=== PATIENT | male | born 1990 | race Hispanic/Latino ===

== ENCOUNTER 2024-05-18 00:46 | Emergency (ER) | payer OTHER, SELFPAY ==
--- OUTSIDE RECORDS SUMMARY | 2024-05-18 00:50 | XMS REPORT | Continuity of Care Document ---
Author Name Unknown Address [address] [facility] [address] [place] [address] [facility] Address [address] [facility]. [address] [place] [address] Care Team Providers Care Hand Cultivator Name Role Phone Miguelito Gomez Attending Clinician Unavailable Julio C Thomason Attending Clinician Unavailable Kyrstin Engel Attending Clinician Unavail able Vignesh Baker Attending Clinician Unavailable Katherine Ambrosio APN Admitting Clinician Codey Wagner Admitting Clinician Unavailable KNOW, DOES_NOT Admitting Clinician Unavailable Physician, No Primary or Family Admitting Clinic geovani Unavailable Payers Payer Name Policy Type Policy Number Effective Date Expirati on Date Source Allergies, Adverse Reactions, Alerts Allergy Name Allergy Type Status Severity Reaction(s) Onset Date Inactive Date Treating Clinician Comments Source No Known Allergie s DA Active U 8-10 00:00: 00 [facility] No Known Allergie s DA Active U 8-20 00:00: 00 [facility] No Known Allergie s DA Active U 7-17 00:00: 00 [facility] Encounters Start Date/Time End Date/Time Encounter Type Admission Type Attending Clinicians Care Facility Care Department Encounter ID Source 2023-05-24 22:46:00 2023-05-24 23:47:00 Emergency EM Miguelito Gomez [facility] [id number] [facility] 2023-03-01 19:21:00 2023-03-01 22:20:00 Emergency EM Julio C Thomason [facility] [id number] [facility] 2023-03-01 19:21:00 2023-03-01 22:20:00 Emergency EM Julio C Thomason [facility] [id number] [facility] 2022-11-02 08:58:00 2022-11-02 09:54:00 Emergency EM Julio C Thomason [facility] [id number] [facility] 2022-03-11 21:13:00 2022-03-11 23:22:00 Emergency EM Krystin Engel [facility] [id number] [facility] 2022-02-05 10:00:00 2022-02-05 11:13:00 [facility] [id number] [facility] 2022-02-05 10:00:00 2022-02-05 11:13:00 Emergency EM [facility]ignesh [facility] [id number] [facility] Results Test Description Test Time Test Comments Results Result Co mments Source URINALYSIS W REFLEX [id number] 21:09:00* Test Item Value Reference Range Interpretation Comme nts UA COLOR (test code = COLU) YELLOW YELLOW UA APPEARANCE (test code = APPU) TURBID CLEAR UA GLUCOSE DIPSTICK (test co de = DGLUU) NORMAL mg/dl NORMAL UA BILIRUBIN DIPSTICK (test code = BILU) NEGATIVE mg/dl NEGATIVE UA KETONE DIPSTICK (test cod e = KETU) NEGATIVE mg/dl NEGATIVE UA SPECIFIC GRAVITY (test co de = SGU) 1.021 1.001-1.035 N UA BLOOD DIPSTICK (test code = ZACARIAS) NEGATIVE /UL NEGATIVE UA PH DIPSTICK (test code = GRETA) 6.5 4.6-8.0 UA PROTEIN DIPSTICK (test co de = PROU) 20 mg/dl NEGATIVE UA UROBILINIOGEN DIPSTICK (test code = URO) NORMAL mg/dl NORMAL UA NITRITE DIPSTICK (test co de = ROSALVA) NEGATIVE NEGATIVE UA LEUKOCYTE ESTERASE DIPSTI CK (test code = LEUU) NEGATIVE /UL NEGATIVE UA COMMENT (test code = COMU) CLN CATCH UA WBC (test code = WBCU) 0-2 #/hpf 0-5 UA EPITHELIAL CELLS (test co de = EPIU) FEW /hpf NEG,FEW UA BACTERIA (test code = BACU) FEW /hpf NEGATIVE A UA MUCUS (test code = MUCU) 2+ /hpf NEG,FEW A UA AMORPHOUS SEDIMENT (test code = AMORU) 2+ /hpf NEG,FEW A - CT HEAD/BRAIN W/O [id number] 21:02:00 [facility] 1990 Sex: M Name: AYANNA NATH [facility] : 1990 Age/S: 32 / M [address] Unit#: [id number] [place]: [place] [address] Phys: Julio C Thomason MD Acct: [id number] Dis Date: Status: REG ER PHONE #: [phone] Exam Date: 03/01/20232058 FAX #: [phone] Reason: seizure EXAMS: CPT CODE: [id number] CT HEAD/BRAIN W/O CONT [id number] EXAM: CT head without contrast. LOCATION: H 12 HISTORY: seizure TECHNIQUE: Unenhanced spiral slices were taken from the base of the skull, through the vertex. One or more of the following dose reduction techniques were used: Automated exposure control, adjustment of the mA and/or kV according to patient size, and/or utilization of iterative recons truction technique. FINDINGS: No acute intracranial abnormality is identified. The brain parenchyma and the CSF spaces are unremarkable. No mass, midline shift, hemorrhage, edema or hydrocephalus isseen. The visualized paranasal sinuses are clear. The mastoid air cells are well pneumatized. The bony calvarium is intact. IMPRESSION: 1. No acute intracranial abnormality. 2. Unremarkable exam. at 2101 Reported and signed by: JOHN REY M.D. CC: Julio C Thomason MD Technologist:Sanchez Moreno, RT (R) CT (R) CTDI: 43.97 DLP: 838.7 [facility] Date/Time: 03/01/2023 (2101) t.[email or web address].[email or web address] Orig Print D/T: S: 03/01/2023 (2104) PAGE 1 Signed Report- CT HEAD/BRAIN W/O [id number] 21:02:00 [facility] : 1990 [facility] 1990 Age/S: 32 / M [address] Unit #: [id number] [facility] [place] [address] Phys: Julio C Thomason MD Acct: [id number] Dis Date: Status: [facility] PHONE #: [phone] Exam Date: 03/01/20232058 FAX #: [phone] Reason: seizure EXA MS: CPT CODE: [id number] CT HEAD/BRAIN W/O CONT 51455 EXAM: CT head without contrast. LOCATION: H 12 HISTORY: seizure TECHNIQUE: Unenhanced spiral slices were taken from the base of the skull, through the vertex. One or more of the following dose reduction techniques were used: Automated exposure control, adjustment of the mA and/or kV according to patient size, and/or utilization of iterative reconstruction technique. FINDINGS: No acute intracranial abnormality is identified. The brain parenchyma and the CSF spaces are unremarkable. No mass, midline shift, hemorrhage, edema or hydrocephalus is seen. The visualized paranasal sinuses are clear. The mastoid air cells are well pneumatized. Thebony calvarium is intact. IMPRESSION: 1. No acute intracranial abnormality. 2. Unremarkable exam. at 2101 Reported and signed by: JOHN REY M.D. CC: Julio C Thomason MD Technologist:Sanchez Moreno, RT (R) CT (R) CTDI: 43.97 DLP: 838.7 [facility] Date/Time: 03/01/2023 (2101) ZacFC Orig Print D/T: S: 03/01/2023 (2104)PAGE 1 Signed ReportCOMPREHENSIVE METABOLIC [id number] 19:59:00* Test Item Value Reference Range Interpretation Comme nts SODIUM (test code = NA) 141 mmol/L 136-145 N POTASSIUM (test code = K) 3.3 mmol/L 3.5-5.1 L CHLORIDE (test code = CL) 104 mmol/L 98-107 N CARBON DIOXIDE (test code = CO2) 24 mmol/L 21-32 N GLUCOSE (test code = GLU) 125 mg/dL 70-100 H BLOOD UREA NITROGEN (test code = BUN) 12 mg/dL 7-18 N GLOMERULAR FILTRATION RATE (test code = GFR) > 60.00 See_Comment The Glomerular Filtration Rate is a calculated parameterbased on serum Creatinine, patient age and sex. GFR valuesless than 60 mL/min/1.73 square meters are indicative ofChronic Kidney Disease. Values less than 15 mL/min/1.73square meters indicate Kidney failure. The calculation forGFR is based on the CKD-EPI (2020) calculation. This formulais race indifferent and is the recommended formula for GFRby the National Kidney Foundation for Adults.The GFR will not calculate if the sex is unknown or if thepatient's age is <18 years. [Automated message] The system which generated this result transmitted reference range: >=60. The reference range was not used to interpret this result as normal/abnormal. CREATININE (test code = CREAT) 1.28 mg/dL 0.67-1.17 H TOTAL PROTEIN (test code = PROT) 7.4 g/dl 6.4-8.2 N ALBUMIN (test code = ALB) 4.0 g/dl 3.4-5.0 N CALCIUM (test code = CA) 9.6 mg/dL 8.5-10.1 N BILIRUBIN TOTAL (test code = BILT) 0.3 mg/dl 0.2-1.0 N SGOT/AST (test code = AST) 80 U/L 15-37 H SGPT/ALT (test code = ALT) 119 U/L 12-78 H ALKALINE PHOSPHATASE TOTAL (test code = ALKP) 58 U/L 50-136 N CREATINE KINASE (CK)2023-03-01 19:59:00* Test Item Value Reference Range Interpretation Comme nts CREATINE KINASE (CK) (test code = CK) 47 U/L 35-232 N [id number] 19:59:00* Test Item Value Reference Range Interpretation Comme nts MAGNESIUM (test code = MAG) 2.1 mg/dL 1.8-2.4 N [id number] 19:59:00* Test Item Value Reference Range Interpretation Comme nts ALCOHOL (test code = ALC) <3 mg/dL 0-3 N Results are for Medical purposes only, and not for Legal orEmployment evaluation purposes. CBC W/AUTO [id number] 19:41:00* Test Item Value Reference Range Interpretation Comme nts WHITE BLOOD CELL (test code = WBC) 8.6 X10(3) 4.5-11.0 N RED BLOOD CELL (test code = RBC) 4.67 X10(6) 4.3-5.9 N HEMOGLOBIN (test code = HGB) 15.3 g/dL 13.5-18.0 N HEMATOCRIT (test code = HCT) 44.8 % 42.0-52.0 N MEAN CELL VOLUME (test code = MCV) 95.9 fl 78-100 N MEAN CELL HGB (test code = MCH) 32.8 pg 26.0-34.0 N MEAN CELL HGB CONCETRATION (test code = MCHC) 34.2 g/dl 30.0-37.0 N RED CELL DISTRIBUTION WIDTH (test code = RDW) 12.7 % 11.5-14.5 N PLATELET COUNT (test code = PLT) 238 X10(3) 150-400 N MEAN PLATELET VOLUME (test c ode = MPV) 8.6 fl 8.7-11.4 L NEUTROPHIL % (test code = NT%) 47.8 % 36.0-66.0 N IMMATURE GRANULOCYTE % (test code = IG%) 0.1 % 0.0-2.0 N LYMPHOCYTE % (test code = LY%) 33.7 % 16.0-50.0 N MONOCYTE % (test code = MO%) 15.8 % 0.0-13.0 H EOSINOPHIL % (test code = EO%) 2.1 % 0.0-4.5 N BASOPHIL % (test code = BA%) 0.5 % 0.0-1.5 N NUCLEATED RBC % (test code = NRBC%) 0.0 % 0-0.2 N NEUTROPHIL # (test code = NT#) 4.09 X10(3) 1.70-7.70 N IMMATURE GRANULOCYTE # (test code = IG#) 0.01 X10(3)uL 0.00-0.03 N LYMPHOCYTE # (test code = LY#) 2.88 X10(3) 0.70-4.00 N MONOCYTE # (test code = MO#) 1.35 X10(3) 0.00-0.89 H EOSINOPHIL # (test code = EO#) 0.18 X10(3) 0.00-0.60 N BASOPHIL # (test code = BA#) 0.04 X10(3) 0.00-0.20 N NUCLEATED RBC # (test code = NRBC#) 0.00 K/mm3 0.0-0.1 N - XR L-SPINE 2/3 [id number] 09:43:00 [facility] 1990 Sex: M [facility] Name: AYANNA NATH [address] Phys: Julio C Thomason MD [place], [place] [address] : 1990 Age: 32 Sex: M Acct: [id number] Loc: [facility] PHONE #: [phone] ExamDate: 11/02/2022 Status: REG ER FAX #: [phone] Radiology No: Unit No: [id number] Reason: upperlumbar pain EXAMS: CPT CODE: [id number] XR L-SPINE 2/3 VIEWS 93266 Fluoro Time: DAP (Gy m2): Air Kerma (mGy): Dictation location B2 Thoracic spine 3 views Lumbar spine 2 views HISTORY:upper lumbar pain, fall COMMENT: There is a normal thoracic kyphosis with preservation of normal vertebral body alignment, vertebral body height and intervertebral disc space distance. No evidence of fracture is identified. The paravertebral stripe appears normal with no widening. There is normal lumbar lordosis with preservation of normal vertebral body alignment, vertebral body height, and intervertebral disc space distance. No spondylolysis, or spondylolisthesis is visualized. There is no evidence of fracture or dislocation. IMPRESSION: 1. Normal thoracic spine. 2. Normal lumbar spine. at 0943 Reported and signed by: TERRA VELAZQUEZ M.D. CC: Lenny Thomason MD Technologist: Gigi Alex RT (R) CT Transcribed Date/Time: 11/02/2022 (0943) t.SDR.PXC Orig Print D/T: S: 11/02/2022 (0946) PAGE 1 Signed Report- XR T-SPINE 2 [id number] 09:43:00 [facility] : 1990 Sex: M [facility] Name: AYANNA NATH [address] [place] [place] [address] Phys: Julio C Thomason MD [place], [place] [address] : 1990 Age: 32 Sex: M Acct: [id number] Loc: [facility] PHONE #: [phone] ExamDate: 11/02/2022 Status: REG ER FAX #: [phone] Radiology No: Unit No: [id number] Reason: upper lumbar pain, fall EXAMS: CPT CODE: [id number] XR T-SPINE 2 VIEWS 93043 Fluoro Time: DAP (Gy m2): Air Kerma (mGy): Dictation location B2 Thoracic spine 3 views Lumbar spine 2 views HISTORY:upper lumbar pain, fall COMMENT: There is a normal thoracic kyphosis with preservation of normal vertebral body alignment, vertebral body height and intervertebral disc space distance. No evidence of fracture is identified. The paravertebral stripe appears normal with no widening. There is normal lumbar lordosis with preservation of normal vertebral body alignment, vertebral body height, and intervertebraldisc space distance. No spondylolysis, or spondylolisthesis is visualized. There is no evidence of fracture or dislocation. IMPRESSION: 1. Normal thoracic spine. 2. Normal lumbar spine. at 0943 Reported and signed by: TERRA VELAZQUEZ M.D. CC:Julio C Thomason MD Technologist: Gigi Alex RT (R) CT Transcribed Date/Time: 11/02/2022 (0943) ZacPXC Orig Print D/T: S: 11/02/2022 (8840) PAGE 1 Signed ReportCOMPREHENSIVE METABOLIC [id number] 22:29:00* Test Item Value Reference Range Interpretation Comme nts SODIUM (test code = NA) 134 mmol/L 136-145 L POTASSIUM (test code = K) 3.7 mmol/L 3.5-5.1 N CHLORIDE (test code = CL) 103 mmol/L 98-107 N CARBON DIOXIDE (test code = CO2) 25 mmol/L 21-32 N GLUCOSE (test code = GLU) 99 mg/dL 70-100 N BLOOD UREA NITROGEN (test code = BUN) 13 mg/dL 7-18 N GLOMERULAR FILTRATION RATE (test code = GFR) > 60.00 See_Comment Reporting units: mL/min/1.73m\S\2 (Modified MDRD formula)REFERENCE RANGE: > or = 60 ml/min/1.73M2IF PATIENT IS -WALLISIAN, MULTIPLY REPORTED RESULT BY1.21. [Automated message] The system which generated this result transmitted reference range: >=60. The reference range was not used to interpret this result as normal/abnormal. CREATININE (test code = CREAT) 1.00 mg/dL 0.67-1.17 N TOTAL PROTEIN (test code = PROT) 8.3 g/dl 6.4-8.2 H ALBUMIN (test code = ALB) 4.0 g/dl 3.4-5.0 N CALCIUM (test code = CA) 9.2 mg/dL 8.5-10.1 N BILIRUBIN TOTAL (test code = BILT) 1.1 mg/dl 0.2-1.0 H SGOT/AST (test code = AST) 42 U/L 15-37 H SGPT/ALT (test code = ALT) 54 U/L 12-78 N ALKALINE PHOSPHATASE TOTAL (test code = ALKP) 59 U/L 50-136 N TROPI (HIGH SENSITIVITY)2022-03-11 22:29:00* Test Item Value Reference Range Interpretation Comme nts TROPI (HIGH SENSITIVITY) (test code = TROPI) <4 pg/ml 0-78 N HIGH SENSITIVITY TROPONIN MEASUREMENT/RANGES--------- Ass ay : Units : Normal : Risk Stratification : High : : (Detectable : Limit(Suggestive of : AboveTNIH : : Limit) : sequential testing) : 99th : : : : % ile --------FEMALES: pg/ml : <= 3.0 : 3.1 - 54 : >54 --------MALES : pg/ml : <= 3.0 : 3.1 - 78 : >78 --------- UA RFLX MICROSCOPIC [id number] 22:12:00* Test Item Value Reference Range Interpretation Comme nts UA COLOR (test code = COLU) YELLOW YELLOW UA APPEARANCE (test code = APPU) CLEAR CLEAR UA GLUCOSE DIPSTICK (test co de = DGLUU) NORMAL mg/dl NORMAL UA BILIRUBIN DIPSTICK (test code = BILU) NEGATIVE mg/dl NEGATIVE UA KETONE DIPSTICK (test cod e = KETU) 20 mg/dl NEGATIVE A UA SPECIFIC GRAVITY (test co de = SGU) 1.021 1.001-1.035 N UA BLOOD DIPSTICK (test code = ZACARIAS) NEGATIVE /UL NEGATIVE UA PH DIPSTICK (test code = GRETA) 7.5 4.6-8.0 UA PROTEIN DIPSTICK (test co de = PROU) NEGATIVE mg/dl NEGATIVE UA UROBILINIOGEN DIPSTICK (test code = URO) 12 mg/dl NORMAL A UA NITRITE DIPSTICK (test co de = ROSALVA) NEGATIVE NEGATIVE UA LEUKOCYTE ESTERASE DIPSTI CK (test code = LEUU) NEGATIVE /UL NEGATIVE UA COMMENT (test code = COMU) CLN CATCH UA WBC (test code = WBCUR) 0-2 #/hpf 0-5 UA RBC (test code = RBCU) 3-5 #/hpf 0-5 UA BACTERIA (test code = BACU) FEW /hpf NEGATIVE A UA MUCUS (test code = MUCU) FEW /hpf NEG,FEW UA AMORPHOUS SEDIMENT (test code = AMORU) FEW /hpf NEG,FEW Indication for culture: Temperature > 100.4 FURINE SOURCE: CLEAN CATCH URINE COVID 19 INHOUSE [id number] 22:10:00* Test Item Value Reference Range Interpretation Comme nts COVID 19 INHOUSE AG (test code = [id number]) Presumed Negative NEGATIVE SHAILA COVID-19 Results are for the identification of EYBU-JxO-7vcsvuxpnidxt protein antigen. Antigen is generallydetectable in upper respiratory specimens during the acutephase of infection. Positive results indicate the presenceof viral antigens, but clinical correlation with patienthistory and other diagnostic information is necessary todetermine infection status. Negative results should be treated as presumptive andconfirmed with a molecular assay, if necessary for patientmanagement. Negative results do not rule out COVID-19 andshould not be used as the sole basis for treatment orpatient management decisions, including infection controldecisions. Negative results should be considered in thecontext of a patient's recent exposures, history and thepresence of clinical signs and symptoms consistent withCOVID-19. The Shaila SARS Antigen DEJA is only for use under the Foodand Drug Administration's Emergency Use Authorization. CBC W/AUTO [id number] 22:08:00* Test Item Value Reference Range Interpretation Comme nts WHITE BLOOD CELL (test code = WBC) 14.7 X10(3) 4.5-11.0 H RED BLOOD CELL (test code = RBC) 4.96 X10(6) 4.3-5.9 N HEMOGLOBIN (test code = HGB) 15.5 g/dL 13.5-18.0 N HEMATOCRIT (test code = HCT) 45.0 % 42.0-52.0 N MEAN CELL VOLUME (test code = MCV) 90.7 fl 78-100 N MEAN CELL HGB (test code = MCH) 31.3 pg 26.0-34.0 N MEAN CELL HGB CONCETRATION (test code = MCHC) 34.4 g/dl 30.0-37.0 N RED CELL DISTRIBUTION WIDTH (test code = RDW) 13.2 % 11.5-14.5 N PLATELET COUNT (test code = PLT) 246 X10(3) 150-350 N MEAN PLATELET VOLUME (test c ode = MPV) 9.0 fl 8.7-11.4 N NEUTROPHIL % (test code = NT%) 75.7 % 36.0-66.0 H IMMATURE GRANULOCYTE % (test code = IG%) 0.4 % 0.0-2.0 N LYMPHOCYTE % (test code = LY%) 7.7 % 16.0-50.0 L MONOCYTE % (test code = MO%) 14.9 % 0.0-13.0 H EOSINOPHIL % (test code = EO%) 1.0 % 0.0-4.5 N BASOPHIL % (test code = BA%) 0.3 % 0.0-1.5 N NUCLEATED RBC % (test code = NRBC%) 0.0 % 0-0.2 N NEUTROPHIL # (test code = NT#) 11.12 X10(3) 1.70-7.70 H IMMATURE GRANULOCYTE # (test code = IG#) 0.06 X10(3)uL 0.00-0.03 H LYMPHOCYTE # (test code = LY#) 1.13 X10(3) 0.70-4.00 N MONOCYTE # (test code = MO#) 2.19 X10(3) 0.00-0.89 H EOSINOPHIL # (test code = EO#) 0.15 X10(3) 0.00-0.60 N BASOPHIL # (test code = BA#) 0.04 X10(3) 0.00-0.20 N NUCLEATED RBC # (test code = NRBC#) 0.00 K/mm3 0.0-0.1 N LACTIC [id number] 22:07:00* Test Item Value Reference Range Interpretation Comme nts LACTIC ACID (test code = LACT) 1.1 mmol/l 0.4-2.0 N - XR CHEST 1 [id number] 22:04:00 [facility] : 1990 Sex: M [facility] Name: AYANNA NATH [address] [place] [place] [address] Phys: Krystin Engel DO [place], [place] [address] : 1990 Age: 31 Sex: M Acct: [id number] Loc: [facility] PHONE #: [phone] Date: 03/11/2022 Status: REG ER FAX #: [phone] Radiology No: Unit No: [id number] Reason: chest pain EXAMS: CPT CODE: [id number] XR CHEST 1 V 43761 Fluoro Time: DAP (Gy m2): Air Kerma (mGy): L OCATION: Q15 HISTORY: 31-year-old male presents with chest pain and dyspnea. COMMENT: A frontal chest radiograph was obtained at 9:53 p.m. The lungs are clear and well-aerated. The cardiac silhouette, austin, and mediastinum are within normal limits. The skeleton and soft tissues are unremarkable. IMPRESSION: Unremarkable frontal chest examination. at 2204 Reported and signed by: AISSATOU MEZA M.D. CC: Krystin Engel DO Technologist: Shikha Anguiano RT (R) ; ... Transcribed Date/Time: 03/11/2022 (2203) tMARY [id number] Orig Print D/T: S: 03/11/2022 (2206) PAGE 1 Signed ReportCOMPREHENSIVE METABOLIC [id number] 10:54:00* Test Item Value Reference Range Interpretation Comme nts SODIUM (test code = NA) 138 mmol/L 136-145 N POTASSIUM (test code = K) 3.6 mmol/L 3.5-5.1 N CHLORIDE (test code = CL) 109 mmol/L 98-107 H CARBON DIOXIDE (test code = CO2) 25 mmol/L 21-32 N GLUCOSE (test code = GLU) 79 mg/dL 70-100 N BLOOD UREA NITROGEN (test code = BUN) 20 mg/dL 7-18 H GLOMERULAR FILTRATION RATE (test code = GFR) > 60.00 See_Comment Reporting units: mL/min/1.73m\S\2 (Modified MDRD formula)REFERENCE RANGE: > or = 60 ml/min/1.73M2IF PATIENT IS -WALLISIAN, MULTIPLY REPORTED RESULT BY1.21. [Automated message] The system which generated this result transmitted reference range: >=60. The reference range was not used to interpret this result as normal/abnormal. CREATININE (test code = CREAT) 1.06 mg/dL 0.67-1.17 N TOTAL PROTEIN (test code = PROT) 7.5 g/dl 6.4-8.2 N ALBUMIN (test code = ALB) 4.1 g/dl 3.4-5.0 N CALCIUM (test code = CA) 7.8 mg/dL 8.5-10.1 L BILIRUBIN TOTAL (test code = BILT) 0.5 mg/dl 0.2-1.0 N SGOT/AST (test code = AST) 150 U/L 15-37 H SGPT/ALT (test code = ALT) 145 U/L 12-78 H ALKALINE PHOSPHATASE TOTAL (test code = ALKP) 62 U/L 50-136 N [id number] 10:54:00* Test Item Value Reference Range Interpretation Comme nts LIPASE (test code = LIP) 72 U/L 73-393 L - XR ABD COMP W DEC/ERE [id number] 10:53:00 [facility] : 1990 Sex: M [facility] Name: AYANNA NATH [address] Phys: Vignesh Baker Jr, [place] [address] : 1990 Age: 31 Sex: M Acct: [id number] Loc: [facility] PHONE #: [phone] Exam Date: 02/05/2022 Status: PRE ER FAX #: [phone] Radiology No: Unit No: [id number] Reason: ABD PAIN EXAMS: CPT CODE: [id number] XR ABD COMP W DEC/ERE 3+V 86349 Fluoro Time: DAP (Gy m2): Air Kerma (mGy): - XR ABD COMP W DEC/ERE 3+V REASON FOR EXAM: ABD PAIN COMPARISON: No prior comparison studies. FINDINGS: 2 frontal images of the abdomen. Bowel gas pattern is nonobstructive. Moderate stool burden. No obvious free air. Visualized lung bases are unremarkable. No acute osseous abnormality. IM PRESSION: No acute radiographic findings of the abdomen. Location: H71 at 1053 Reported and signed by: MISHEL PINEDA M.D. CC: Technologist: Cali Basilio,HARLEYT,BUSINESS OFFICE COORDINATOR,RTR Transcribed Date/Time: 02/05/2022 (1682) ZacVM14 OrigPrint D/T: S: 02/05/2022 (9717) PAGE 1 Signed ReportCBC W/AUTO DIFF 2022-02-05 10:28:00* Test Item Value Reference Range Interpretation Comme nts WHITE BLOOD CELL (test code = WBC) 8.3 X10(3) 4.5-11.0 N RED BLOOD CELL (test code = RBC) 4.60 X10(6) 4.3-5.9 N HEMOGLOBIN (test code = HGB) 14.3 g/dL 13.5-18.0 N HEMATOCRIT (test code = HCT) 42.1 % 42.0-52.0 N MEAN CELL VOLUME (test code = MCV) 91.5 fl 78-100 N MEAN CELL HGB (test code = MCH) 31.1 pg 26.0-34.0 N MEAN CELL HGB CONCETRATION (test code = MCHC) 34.0 g/dl 30.0-37.0 N RED CELL DISTRIBUTION WIDTH (test code = RDW) 13.0 % 11.5-14.5 N PLATELET COUNT (test code = PLT) 206 X10(3) 150-350 N MEAN PLATELET VOLUME (test c ode = MPV) 8.9 fl 8.7-11.4 N NEUTROPHIL % (test code = NT%) 64.8 % 36.0-66.0 N IMMATURE GRANULOCYTE % (test code = IG%) 0.1 % 0.0-2.0 N LYMPHOCYTE % (test code = LY%) 22.8 % 16.0-50.0 N MONOCYTE % (test code = MO%) 8.4 % 0.0-13.0 N EOSINOPHIL % (test code = EO%) 3.5 % 0.0-4.5 N BASOPHIL % (test code = BA%) 0.4 % 0.0-1.5 N NUCLEATED RBC % (test code = NRBC%) 0.0 % 0-0.2 N NEUTROPHIL # (test code = NT#) 5.39 X10(3) 1.70-7.70 N IMMATURE GRANULOCYTE # (test code = IG#) 0.01 X10(3)uL 0.00-0.03 N LYMPHOCYTE # (test code = LY#) 1.90 X10(3) 0.70-4.00 N MONOCYTE # (test code = MO#) 0.70 X10(3) 0.00-0.89 N EOSINOPHIL # (test code = EO#) 0.29 X10(3) 0.00-0.60 N BASOPHIL # (test code = BA#) 0.03 X10(3) 0.00-0.20 N NUCLEATED RBC # (test code = NRBC#) 0.00 K/mm3 0.0-0.1 N Notes Date/Time Note Provider Source 2023-05-24 23:06:00 [facility] EMERGENCY PROVIDER REPORT REPORT#:[id number] REPORT STATUS: Signed DATE:05/24/23 TIME: 2305 PATIENT: AYANNA NATH UNIT #: [id number] ROOM/BED: AGE: 33 SEX: M PCP PHYS: Katherine Ambrosio [employer] AUTHOR: Miguelito Gomez Jr, MD * ALL edits or amendments must be made on the electronic/computer document * HPI-Abd Pain M Under 40 Free Text HPI Notes Free Text HPI Notes Patient presents with concerns for constipation. Patient is with been about 4 days since his last bowel movement. He states usually goes daily. He states he is passing gas regularly. He denies any vomiting. Denies any abdominal pain. He states he thought he had some black stool the last time he had a bowel movement. No hematochezia no hematemesis no history of GI bleeding. Reports a possible history of cirrhosis. Denies fevers chills cough congestion nausea vomiting diarrhea. He came because he has the constipation but he has not tried any stool softeners or enemas or suppositories. Review of Systems Constitutional Denies: Chills, Fatigue, Fever. Ears/Nose/Throat Denies: Nasal congestion, Sore throat, Throat pain. Respiratory Denies: Cough, non-productive, Cough, productive, Shortness of breath. Cardiovascular Denies: Chest pain, Dyspnea on exertion, Edema, Palpitations. GI Reports:CONSTIPATION Denies: Abdominal pain, Diarrhea, Nausea, Vomiting. Male Denies: Dysuria, Flank pain, Hematuria. Musculoskeletal Denies: Back pain, Extremity pain, Joint pain, Myalgia. Hematologic Denies: Bleeding, Bruising, Petechiae. Skin Denies: Abrasion, Diaphoresis, Itching, Jaundice, Rash. Neurologic Denies: Change LOC, Confusion, Dizziness, Focal weakness, Generalized weakness. Physical Exam General/Const General/Const Awake, Alert, No acute distress, Well appearing, Well developed , Cooperative, Not toxic appearing MS Head Head Atraumatic, Normocephalic Eyes Eyes Atraumatic, PERRL, EOMI Ears/Nose/Throat Ears/Nose/Throat Atraumatic, Airway patent, Mucous membranes moist MS Neck Neck Atraumatic, Supple, No meningismus Resp/Chest Respiratory/Chest Atraumatic, No respiratory distress, No retractions Cardiovascular Cardiovascular Heart rate NL, Cap refill not delayed, Peripheral circulation NL Abdomen/GI Abdomen/GI Atraumatic, Soft, Non-tender MS Back Back Atraumatic, Inspection NL, Full range of motion Skin Skin Atraumatic, Color NL, No rash Neurologic Neurologic Oriented X3, Speech NL, No motor deficits General Initial Greet Date/Time 05/24/232246 Presentation Chief Complaint Constipation Risk-Abd Pain M Under 40 )( Torsion Risk factors reviewed, No risk factors Past Medical History - Adult Stated Complaint CONSTIPATION, LAST BM 4 DAYS AGO Allergies Coded Allergies: No Known Allergies (03/11/22) Home Medications Active Scripts AZITHROMYCIN (Z-KVNG) 250 MG PO ASDIR AZITHROMYCIN (Z-KVNG) 250 MG PO ASDIR #6 TABS Prov: 03/11/22 predniSONE 40 MG PO DAILY predniSONE 40 MG PO DAILY #8 TABS Prov: 03/11/22 ALBUTEROL (VENTOLIN HFA 90 MCG/ACT 18 GM) 2 PUFF INH RTQ4H PRN PRN cough ALBUTEROL (VENTOLIN HFA 90 MCG/ACT 18 GM) 2 PUFF INH RTQ4H PRN PRN cough # 18 GM Prov: 03/11/22 ACETAMINOPHEN (TYLENOL) 500 MG PO ASDIR ACETAMINOPHEN (TYLENOL) 500 MG PO ASDIR #24 TABS Prov: 02/05/22 ONDANSETRON ODT (ZOFRAN ODT) 4 MG PO Q6H PRN PRN NAUSEA/VOMITING ONDANSETRON ODT (ZOFRAN ODT) 4 MG PO Q6H PRN PRN NAUSEA/VOMITING #15 TABS Prov: 02/05/22 Calculated Suicide Risk (nurs) No risk Past Medical History: Reports: Alcoholism/subst abuse, Depression/mood disorder. Additional Medical History transaminitis Additional Surgical History Knee arthroscopic surgery Alcohol Use In recovery Drug Use Denies recreational drugs (everything), in past Smoking status for patients 13 years old or older: Unknown,if ever smoked Physical Exam Vital Signs Vital Signs First Documented: Result Date Time Pulse Ox 96 05/24 2247 B/P 111/72 05/247 B/P Mean 85 05/24 2247 Temp 37.4 05/24 2247 Pulse 96 05/24 2247 Resp 18 05/24 2247 O2 Delivery Room air 05/24 2347 Last Documented: Result Date Time Pulse Ox 98 05/24 2347 B/P 112/68 05/24 2347 B/P Mean 82 05/24 2347 O2 Delivery Room air 05/24 2347 Temp 37.2 05/24 2347 Pulse 87 05/24 2347 Resp 16 05/24 2347 Review of Vital Signs Reviewed, Vital signs normal Focused PE Rectum Rectal for Blood Negative: Blood, grossly present, Blood streaked stool, Currant jelly stool, Maroon stool, Melena present. Re-Evaluation MDM Free Text MDM Notes Free Text MDM Notes Considered small bowel stricture versus constipation versus upper GI bleed. On arrival patient nontoxic-appearing but on exam patient is soft nontender nondistended abdomen. Rectal exam without any melena or hematochezia. Patient still passing gas. Patient is tolerating p.o. Patient without any emesis. Patient without any surgical history, unlikely to have small bowel obstruction. Patient likely just constipation. Provided him with lactulose as he has not tried anything at home. Understands return precautions. )( Re-Evaluation/Progress #1 )( Re-Eval Status Improved Differential Diagnosis )( Differential Diagnosis Acute abdominal pain, Appendicitis, Bowel obstruction, Constipation Patient Discharge Departure Vital Signs/Condition Vital Signs First Documented: Result Date Time Pulse Ox 96 05/24 2247 B/P 111/72 05/24 2247 B/P Mean 85 05/24 2247 Temp 37.4 05/24 2247 Pulse 96 05/24 2247 Resp 18 05/24 2247 O2 Delivery Room air 05/24 2347 Last Documented: Result Date Time Pulse Ox 98 05/24 2347 B/P 112/68 05/247 B/P Mean 82 05/24 2347 O2 Delivery Room air 05/24 2347 Temp 37.2 05/24 2347 Pulse 87 05/24 2347 Resp 16 05/24 2347 All vital signs available at the time of this entry have been reviewed. Clinical Impression Clinical Impression Primary Impression: Constipation Disposition Decision Discharge )( Discharged to Home Yes )( Time 2307 )( Date 05/24/23 Discharge/Care Plan (Auto) Prescriptions Current Visit Scripts LACTULOSE (KRISTALOSE) 20 GM PO DAILY LACTULOSE (KRISTALOSE) 20 GM PO DAILY #10 PACKET at 0040 RPT #:[id number] END OF REPORT [facility] 19:29:00 [facility] ([facility]) EMERGENCY PROVIDER REPORT REPORT#:[id number] REPORT STATUS: Signed DATE:03/01/23 TIME: 1928 PATIENT: AYANNA NATH UNIT #: [id number] ROOM/BED: AGE: 32 SEX: M PCP PHYS: Codey Taylor Jr, MD SERVICE AUTHOR: Julio C Thomason MD * ALL edits or amendments must be made on the electronic/computer document * HPI-Seizure Free Text HPI Notes Free Text HPI Notes EMS states that it appears that patient has had 2 [id number] seizures. Family denies any medical problems and does state that patient has used recreational drugs previously and not sure if the seizure is related to any new drug use. Family denies any fevers or trauma. General Initial Greet Date/Time 03/01/231928 Presentation Chief Complaint Abnormal movements, Shaking Hx Obtained From EMS Review of Systems Focused Review of Systems Neurologic Reports: Seizure. Past Medical History - Adult Stated Complaint SEIZURE Allergies Coded Allergies: No Known Allergies (03/01/23) Pt reports no significant: Past surgical history, Family history Past Medical History: Reports: Alcoholism/subst abuse, Depression/mood disorder. Additional Medical History transaminitis Alcohol Use In recovery Drug Use Denies recreational drugs (everything), in past Physical Exam Vital Signs Vital Signs First Documented: Result Date Time Pulse Ox 96 03/01 1926 B/P 110/75 03/01 1926 B/P Mean 86 03/01 1926 O2 Delivery Room air 03/01 1926 Temp 36.8 03/01 1926 Pulse 110 03/01 1926 Resp 20 03/01 1926 Last Documented: Result Date Time Pulse Ox 96 03/01 2030 B/P 108/55 03/01 2030 B/P Mean 72 03/01 2030 O2 Delivery Room air 03/01 2030 Temp 37.5 03/01 2030 Pulse 89 03/01 2030 Resp 18 03/01 2030 Review of Vital Signs Reviewed, Vital signs abnormal Focused PE General/Const Text/Dict Notes Very rigid with extremities all extended. Does not appear to be tonic or clonic seizure-like activity Distress/Hydration Distress mild. MS Head Head Atraumatic, Normocephalic Eyes Eyes Atraumatic, PERRL, EOMI, No nystagmus Ears/Nose/Throat Ears/Nose/Throat Atraumatic, Airway patent, Mucous membranes moist, Pharynx NL, No peritonsillar abscess, No pooling of secretions, No trismus, Tympanic membs NL, Ext aud canal NL, Mastoid area NL, Nose exam NL, No sinus tenderness, No facial swelling, Gums/dentition NL MS Neck Neck Atraumatic, Supple, No meningismus, Full range of motion, No adenopathy, No swelling, Non-tender, No midline vertebral tend, No masses, No crepitus, No JVD, No carotid bruit, Thyroid NL, No tracheal deviation Resp/Chest Respiratory/Chest Atraumatic, Breath sounds NL, Breath sounds = bilat, No respiratory distress, No rales, No rhonchi, No wheezing, No retractions, No stridor, No chest tenderness, No chest wall deformity, No crepitus Cardiovascular Cardiovascular Regular rhythm, Heart sounds NL, No gallop, No murmurs, No rubs, Cap refill not delayed, Peripheral circulation NL, Pulses = bilaterally, No gross BP differential Heart Rate/Rhythm Tachycardia. MS Upper Extrem Upper Extremity/MS Atraumatic, Inspection NL, Full range of motion, No swelling, Non-tender, No snuffbox tenderness, No erythema, No deformity, Neurologic intact, Vascular intact, No ligamentous injury, Tendon function NL, No compartment syndrome, No circumferential injury, No clubbing/cyanosis, No edema MS Lower Extrem Lower Ext/Pelvis/MS Atraumatic, Inspection NL, Full range of motion, No swelling, Non-tender, No erythema, No deformity, Neurologic intact, Vascular intact, No ligamentous injury, Tendon function NL, No compartment syndrome, No circumferential injury, No edema, Gait NL, Pelvis stable, Pelvis non-tender Neurologic Text/Dict Notes seizing Interpretation Diagnostics Lab Results Interpretation Results Laboratory Tests 03/01/231935: [Embedded Image Not Available] Laboratory Tests: 03/01 Chemistry Sodium (136 - 145 mmol/L) 141 Potassium (3.5 - 5.1 mmol/L) 3.3 L Chloride (98 - 107 mmol/L) 104 Carbon Dioxide (21 - 32 mmol/L) 24 BUN (7 - 18 mg/dL) 12 Creatinine (0.67 - 1.17 mg/dL) 1.28 H Estimated GFR (MDRD) (>=60) > 60.00 Glucose (70 - 100 mg/dL) 125 H Calcium (8.5 - 10.1 mg/dL) 9.6 Magnesium (1.8 - 2.4 mg/dL) 2.1 Total Bilirubin (0.2 - 1.0 mg/dl) 0.3 AST (15 - 37 U/L) 80 H ALT (12 - 78 U/L) 119 H Alkaline Phosphatase (50 - 136 U/L) 58 Total Creatine Kinase (35 - 232 U/L) 47 Total Protein (6.4 - 8.2 g/dl) 7.4 Albumin (3.4 - 5.0 g/dl) 4.0 Hematology WBC (4.5 - 11.0 X10(3)) 8.6 RBC (4.3 - 5.9 X10(6)) 4.67 Hgb (13.5 - 18.0 g/dL) 15.3 Hct (42.0 - 52.0 %) 44.8 MCV (78 - 100 fl) 95.9 MCH (26.0 - 34.0 pg) 32.8 MCHC (30.0 - 37.0 g/dl) 34.2 RDW (11.5 - 14.5 %) 12.7 Plt Count (150 - 400 X10(3)) 238 MPV (8.7 - 11.4 fl) 8.6 L Neut % (Auto) (36.0 - 66.0 %) 47.8 Lymph % (Auto) (16.0 - 50.0 %) 33.7 [place] % (Auto) (0.0 - 13.0 %) 15.8 H Eos % (Auto) (0.0 - 4.5 %) 2.1 Baso % (Auto) (0.0 - 1.5 %) 0.5 Immature Gran # (Auto) (0.00 - 0.03 X10(3)uL) 0.01 Absolute Neuts (auto) (1.70 - 7.70 X10(3)) 4.09 Absolute Lymphs (auto) (0.70 - 4.00 X10(3)) 2.88 Absolute Monos (auto) (0.00 - 0.89 X10(3)) 1.35 H Absolute Eos (auto) (0.00 - 0.60 X10(3)) 0.18 Absolute Basos (auto) (0.00 - 0.20 X10(3)) 0.04 Absolute Nucleated RBC (0.0 - 0.1 K/mm3) 0.00 Immature Gran % (0.0 - 2.0 %) 0.1 Nucleated RBC % (0 - 0.2 %) 0.0 Toxicology Urine Opiates Screen (NEGATIVE ng/ml) NEGATIVE Urine Barbiturates (NEGATIVE ng/ml) NEGATIVE Ur Phencyclidine Scrn (NEGATIVE ng/ml) NEGATIVE Ur Amphetamine Screen (NEGATIVE ng/dl) NEGATIVE U Benzodiazepines Scrn (NEGATIVE ng/ml) POSITIVE H Urine Cocaine Screen (NEGATIVE ng/ml) NEGATIVE U Cannabinoids Screen (NEGATIVE ng/ml) NEGATIVE Serum Alcohol (0 - 3 mg/dL) <3 Ketones (NEGATIVE mg/dl) NEGATIVE Urines Urine Color (YELLOW) YELLOW Urine Appearance (CLEAR) TURBID Urine pH (4.6 - 8.0) 6.5 Ur Specific [place] (1.001 - 1.035) 1.021 Urine Protein (NEGATIVE mg/dl) 20 Urine Glucose (UA) (NORMAL mg/dl) NORMAL Urine Blood (NEGATIVE /UL) NEGATIVE Urine Nitrite (NEGATIVE) NEGATIVE Urine Bilirubin (NEGATIVE mg/dl) NEGATIVE Urine Urobilinogen (NORMAL mg/dl) NORMAL Ur Leukocyte Esterase (NEGATIVE /UL) NEGATIVE Urine WBC (0 - 5 #/hpf) 0-2 Ur Epithelial Cells (NEG,FEW /hpf) FEW Amorphous Sediment (NEG,FEW /hpf) 2+ H Urine Bacteria (NEGATIVE /hpf) FEW H Urine Mucus (NEG,FEW /hpf) 2+ H Urine Comment CLN CATCH Recent Impressions: CAT SCAN - CT HEAD/BRAIN W/O CONT 03/01 2059 Report Impression - Status: SIGNED Entered: 03/01/20232104 IMPRESSION: 1. No acute intracranial abnormality. 2. Unremarkable exam. Impression By: Li REY M.D. Lab Statement Laboratory studies reviewed and considered in the medical decision-making. 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 Patient also states takes Zoloft as needed for depression and this is really seem like it is working. Discussed with patient pseudoseizure versus seizures due to chronic drug use or renewed drug use. Patient also states that he has had some elevations in his liver enzymes that is why he stopped drinking. ED Course Medication(s) Ordered Medication(s) Ordered: Central Nervous System Agents Sig/Jesse Start time Last Medication Dose Route Stop Time Status Admin Lorazepam 2 MG X1ED STA 03/01 1929 DC / IV 03/01 Electrolytic, Caloric, And Oscar Sig/Jesse Start time Last Medication Dose Route Stop Time Status Admin Sodium Chloride 1,000 ML X1ED STA 03/01 1929 DC / IV 03/01 Sodium Chloride 1,000 ML X1ED STA /1928 DC / IV 03/01 Patient Discharge Departure Vital Signs/Condition Vital Signs First Documented: Result Date Time Pulse Ox 96 03/01 1926 B/P 110/75 03/01 1926 B/P Mean 86 03/01 1926 O2 Delivery Room air 03/01 1926 Temp 36.8 03/01 1926 Pulse 110 03/01 1926 Resp 20 03/01 1926 Last Documented: Result Date Time Pulse Ox 96 03/01 2030 B/P 108/55 03/01 2030 B/P Mean 72 03/01 2030 O2 Delivery Room air 03/01 2030 Temp 37.5 03/01 2030 Pulse 89 03/01 2030 Resp 18 03/01 2030 All vital signs available at the time of this entry have been reviewed. Condition Stable, Improved Clinical Impression Clinical Impression Primary Impression: Seizure Secondary Impressions: Renal insufficiency, Transaminitis Time of Impression 2208 Disposition Decision Discharge )( Discharged to Home Yes )( Time 2208 )( Date 03/01/23 Discharge/Care Plan Patient Instructions ED Seizure New [facility] Adult Additional Instructions Please continue cessation of drugs. Please follow-up with a neurologist as directed. It is possible that you had a pseudoseizure due to increased depression. There is also possibility that your seizure was due to chronic drug use. Referrals Provider Referral: Ky Ford MD Address: [facility] [address] [facility] [address] [place] [address] at 2218 RPT #:[id number] END OF REPORT [facility] 2022-11-02 09:11:00 [facility] ([facility]) EMERGENCY PROVIDER REPORT REPORT#:[id number] REPORT STATUS: Signed DATE:11/02/22 TIME: 910 PATIENT: AYANNA NATH UNIT #: [id number] ROOM/BED: AGE: 32 SEX: M PCP PHYS: No Primary or Family Physician SERVICE AUTHOR: Julio C Thomason MD * ALL edits or amendments must be made on the electronic/computer document * HPI-Back Pain Under 40 Free Text HPI Notes Free Text HPI Notes Patient states that a few minutes ago was standing in his driveway. Patient states that he had slipped on some oral that was on the ground and fell backwards into his barbecue pit. Patient states just hit the corner of the grill but does have severe back pain where he hit. Patient states denies any medications prior to arrival. Patient denies any pain on his chest or ribs. Patient states just midline upper lumbar area. Patient denies any radicular pain. General Initial Greet Date/Time 11/02/22 0908 Presentation Chief Complaint Pain, lumbar Hx Obtained From Patient )( Sudden in Onset? Yes Onset Occurred Just prior to arrival Review of Systems ROS Statements All systems rev neg except as marked. Focused Review of Systems Musculoskeletal Reports: Back pain. Past Medical History - Adult Stated Complaint BACK PAIN POST FALL Allergies Coded Allergies: No Known Allergies (03/11/22) Home Medications Active Scripts AZITHROMYCIN (Z-KVNG) 250 MG PO ASDIR AZITHROMYCIN (Z-KVNG) 250 MG PO ASDIR #6 TABS Prov: 03/11/22 predniSONE 40 MG PO DAILY predniSONE 40 MG PO DAILY #8 TABS Prov: 03/11/22 ALBUTEROL (VENTOLIN HFA 90 MCG/ACT 18 GM) 2 PUFF INH RTQ4H PRN PRN cough ALBUTEROL (VENTOLIN HFA 90 MCG/ACT 18 GM) 2 PUFF INH RTQ4H PRN PRN cough # 18 GM Prov: 03/11/22 ACETAMINOPHEN (TYLENOL) 500 MG PO ASDIR ACETAMINOPHEN (TYLENOL) 500 MG PO ASDIR #24 TABS Prov: 02/05/22 ONDANSETRON ODT (ZOFRAN ODT) 4 MG PO Q6H PRN PRN NAUSEA/VOMITING ONDANSETRON ODT (ZOFRAN ODT) 4 MG PO Q6H PRN PRN NAUSEA/VOMITING #15 TABS Prov: 02/05/22 Calculated Suicide Risk (nurs) No risk Additional Surgical History Knee arthroscopic surgery Smoking status for patients 13 years old or older: Never Smoker Physical Exam Vital Signs Vital Signs First Documented: Result Date Time Pulse Ox 99 11/02 900 B/P 132/72 11/02 0801 B/P Mean 92 11/02 900 O2 Delivery Room air 11/02 900 Temp 36.8 11/02 900 Pulse 82 11/02 0801 Resp 18 11/02 900 Last Documented: Result Date Time Pulse Ox 99 11/02 0901 B/P 132/72 11/02 900 B/P Mean 92 11/02 900 O2 Delivery Room air 11/02 900 Temp 36.8 11/02 900 Pulse 82 11/02 900 Resp 18 11/02 900 Review of Vital Signs Reviewed Focused PE General/Const General/Const Awake, Alert, No acute distress, Well appearing, Well developed , Well hydrated, Well nourished, Cooperative, Not toxic appearing MS Back Back Atraumatic, Inspection NL, Full range of motion, Painless range of motion, Non-tender, No paraspinal tenderness, No muscle spasm, Straight leg raise neg, No CVA tenderness Flank/Spine/Paraspinal Lumbar spine tender. Neurologic Neurologic Oriented X3, Speech NL, No motor deficits, No sensory deficits, CN II - XII intact, Cerebellar NL, Memory NL, Gait NL Interpretation Diagnostics Lab Results Interpretation Results Recent Impressions: RADIOLOGY - XR T-SPINE 2 VIEWS 11/02 937 Report Impression - Status: SIGNED Entered: 11/02/2022945 IMPRESSION: 1. Normal thoracic spine. 2. Normal lumbar spine. Impression By: Yannick VELAZQUEZ M.D. RADIOLOGY - XR L-SPINE 2/3 VIEWS 11/02 937 Report Impression - Status: SIGNED Entered: 11/02/2022945 IMPRESSION: 1. Normal thoracic spine. 2. Normal lumbar spine. Impression By: Yannick VELAZQUEZ M.D. Imaging Statement Radiographic studies reviewed and considered in the medical decision-making. Re-Evaluation MDM ED Course Medication(s) Ordered Medication(s) Ordered: Central Nervous System Agents Sig/Jesse Start time Last Medication Dose Route Stop Time Status Admin Ketorolac 60 MG ONCE ONE 11/02 914 DC 11/02 Tromethamine IM 11/03 915 0920 Patient Discharge Departure Vital Signs/Condition Vital Signs First Documented: Result Date Time Pulse Ox 99 11/02 900 B/P 132/72 11/02 0901 B/P Mean 92 11/02 900 O2 Delivery Room air 11/02 900 Temp 36.8 11/02 900 Pulse 82 11/02 09 Resp 18 11/02 900 Last Documented: Result Date Time Pulse Ox 99 11/02 0801 B/P 132/72 11/02 0901 B/P Mean 92 11/02 900 O2 Delivery Room air 11/02 900 Temp 36.8 11/02 900 Pulse 82 11/02 900 Resp 18 11/02 900 All vital signs available at the time of this entry have been reviewed. Condition Stable, Improved Clinical Impression Clinical Impression Primary Impression: Back contusion Disposition Decision Discharge )( Discharged to Home Yes )( Time 0948 )( Date 11/02/22 Discharge/Care Plan Patient Instructions ED Back Contusion Additional Instructions Warm soaks in the tub, stretching exercises, heating pad or muscle rubs can certainly help. Motrin/ibuprofen 600 mg every 8 hours as needed for pain at 0950 RPT #:[id number] END OF REPORT [facility] 2022-03-11 21:28:00 [facility] ([facility]) emergency provider report report#:[id number] report status: signed date:03/11/22 time: 2127 patient: ayanna nath unit #: [id number] room/bed: age: 31 sex: m pcp phys: no primary or family physician service dt: 03/11/22 author: krystin engel do * all edits or amendments must be made on the electronic/computer document * hpi-general illness free text hpi notes free text hpi notes patient presents to the emergency room for evaluation of fever, cough, chest pain for the last 4 days. he reports generalized body aches and chills. he denies any nausea or vomiting. cough is nonproductive. no sick contacts or recent travel. no abdominal pain. no diarrhea. no rash. story by patient never had this before/seen a doctor for this reports generalized body aches, fevers and chills reports dry cough, chest pain no diarrhea/vomiting no palpitation no shortness of breath/dyspnea on exertion denies domestic violence/trauma no sick contact, no travel history/known covid exposure no neck pain or meningeal symptoms. no rash all other systems reviewed and otherwise negative pcp: none quality: sharp, ache frequency: intermittent radiation: nonradiating pain is 5/10 associated symptoms: see above onset: 4 days worse with: none better with: none tried [id number] meds: none past history: past medical history: none past surgical history: none review of system otherwise negative social history: cigarette smoker family history: none drug allergies: none physical exam: general/constant: awake and alert, no acute distress, cooperative. ms head: head normocephalic. no signs of basilar skull fracture. no signs of trauma. eyes: normal conjunctiva, anicteric, no signs of periorbital or orbital edema. no proptosis. no photophobia. normal visual acuity. ears/nose/throat: moist mucous membrane. no pooling of secretions. no mastoid tenderness. no drainage from the ear. no signs of beny's angina. bilateral normal-appearing tympanic membrane. ms neck: neck is supple. no jvd. no goiter. no cervical adenopathy. no midline c- spine tenderness. respiratory/chest: coarse breath sounds noted. no rales, no wheezing, no rhonchi. no respiratory distress. cardiovascular: heart rate within normal limit. regular rhythm. good distal pulses. good capillary refill. abdomen/gi: nontender with no guarding. abdomen is soft. not distended. no rebound, no peritoneal signs. negative foss sign. negative mcburney's. no cva tenderness. no palpable hernia or masses. no pulsatile masses. ms back: normal back inspection. no cva tenderness. no signs of trauma. no rash. no midline thoracic or lumbar spine tenderness. extremity: full range of motion of all extremities. gait within normal limits. achilles tendon bilateral within normal limits. negative homans signs. no pedal edema. good distal pulses of all extremities. no obvious deformity. skin: normal skin color. no rash. warm, dry, intact, normal turgor. no swelling. anicteric. no bruising. genitourinary: exam deferred. rectum: exam deferred. neurologic and mental status: aox4. cranial nerves ii through xii intact. no focal deficit. no facial palsy. nih 0. psychiatric: no suicidal or homicidal ideation. no audiovisual hallucination. no paranoia or psychosis. not a danger to self or others. general confirmed patient yes initial greet date/time 03/11/222123 presentation chief complaint __ past medical history - adult stated complaint chest pain/sob allergies coded allergies: no known allergies (03/11/22) home medications active scripts acetaminophen (tylenol) 500 mg po asdir acetaminophen (tylenol) 500 mg po asdir #24 tabs prov: 02/05/22 ondansetron odt (zofran odt) 4 mg po q6h prn prn nausea/vomiting ondansetron odt (zofran odt) 4 mg po q6h prn prn nausea/vomiting #15 tabs prov: 02/05/22 smoking status for patients 13 years old or older: unknown,if ever smoked physical exam vital signs vital signs first documented: result date time pulse ox 94 03/11 2113 b/p 113/58 03/11 2113 b/p mean 76 03/11 2113 o2 delivery room air 03/11 2113 o2 flow rate 0 03/11 2113 temp 39.2 03/11 2113 pulse 90 03/11 2113 resp 18 03/11 2113 last documented: result date time pulse ox 98 03/11 2227 b/p 108/64 03/11 2227 b/p mean 78 03/11 2227 o2 delivery room air 03/11 2227 o2 flow rate 0 03/11 2227 temp 37.4 03/11 2227 pulse 90 03/11 2227 resp 18 03/11 2227 review of vital signs reviewed interpretation diagnostics lab results interpretation results laboratory tests 03/11/222134: [embedded image not available] laboratory tests: 03/11 chemistry sodium (136 - 145 mmol/l) 134 l potassium (3.5 - 5.1 mmol/l) 3.7 chloride (98 - 107 mmol/l) 103 carbon dioxide (21 - 32 mmol/l) 25 bun (7 - 18 mg/dl) 13 creatinine (0.67 - 1.17 mg/dl) 1.00 estimated gfr (mdrd) (>=60) > 60.00 glucose (70 - 100 mg/dl) 99 lactic acid (0.4 - 2.0 mmol/l) 1.1 calcium (8.5 - 10.1 mg/dl) 9.2 total bilirubin (0.2 - 1.0 mg/dl) 1.1 h ast (15 - 37 u/l) 42 h alt (12 - 78 u/l) 54 alkaline phosphatase (50 - 136 u/l) 59 troponin i high sens (0 - 78 pg/ml) <4 total protein (6.4 - 8.2 g/dl) 8.3 h albumin (3.4 - 5.0 g/dl) 4.0 hematology wbc (4.5 - 11.0 x10(3)) 14.7 h rbc (4.3 - 5.9 x10(6)) 4.96 hgb (13.5 - 18.0 g/dl) 15.5 hct (42.0 - 52.0 %) 45.0 mcv (78 - 100 fl) 90.7 mch (26.0 - 34.0 pg) 31.3 mchc (30.0 - 37.0 g/dl) 34.4 rdw (11.5 - 14.5 %) 13.2 plt count (150 - 350 x10(3)) 246 mpv (8.7 - 11.4 fl) 9.0 neut % (auto) (36.0 - 66.0 %) 75.7 h lymph % (auto) (16.0 - 50.0 %) 7.7 l mono % (auto) (0.0 - 13.0 %) 14.9 h eos % (auto) (0.0 - 4.5 %) 1.0 baso % (auto) (0.0 - 1.5 %) 0.3 immature gran # (auto) (0.00 - 0.03 x10(3)ul) 0.06 h absolute neuts (auto) (1.70 - 7.70 x10(3)) 11.12 h absolute lymphs (auto) (0.70 - 4.00 x10(3)) 1.13 absolute monos (auto) (0.00 - 0.89 x10(3)) 2.19 h absolute eos (auto) (0.00 - 0.60 x10(3)) 0.15 absolute basos (auto) (0.00 - 0.20 x10(3)) 0.04 absolute nucleated rbc (0.0 - 0.1 k/mm3) 0.00 immature gran % (0.0 - 2.0 %) 0.4 nucleated rbc % (0 - 0.2 %) 0.0 03/11 2134 serology sars-cov-2 ag (rapid) (negative) presumed negative toxicology ketones (negative mg/dl) 20 h urines urine color (yellow) yellow urine appearance (clear) clear urine ph (4.6 - 8.0) 7.5 ur specific gravity (1.001 - 1.035) 1.021 urine protein (negative mg/dl) negative urine glucose (ua) (normal mg/dl) normal urine blood (negative /ul) negative urine nitrite (negative) negative urine bilirubin (negative mg/dl) negative urine urobilinogen (normal mg/dl) 12 h ur leukocyte esterase (negative /ul) negative urine rbc (0 - 5 #/hpf) 3-5 urine wbc (0 - 5 #/hpf) 0-2 amorphous sediment (neg,few /hpf) few urine bacteria (negative /hpf) few h urine mucus (neg,few /hpf) few urine comment cln catch microbiology: date/time procedure - status source growth 03/11 2135 blood culture - recd blood 03/11 2125 blood culture - recd blood recent impressions: radiology - xr chest 1 v 03/11 2156 report impression - status: signed entered: 03/11/20222206 impression: unremarkable frontal chest examination. impression by: naz - aissatou meza m.d. lab imaging statement laboratory radiographic studies reviewed and considered in the medical decision-making. ecg #1 interpretation ecg documented in muse yes date 03/11/22 time 2110 interpreted by ed physician nl ecg interpretation normal rate, normal sinus rhythm, no acute ischemic changes, no stemi, normal qrs, normal st waves, normal t waves, normal axis, adequate tracing rate 93 re-evaluation mdm re-evaluation/progress #1 text/dict note patient is feeling better. fever resolved. diagnostic studies reviewed with patient. he will be discharged home. follow-up with pmd recommended in 2 to 3 days. time of re-eval 2258 re-eval status improved sepsis reassessment date of exam: 03/11/22 time of exam: 2258 vital signs: t [37.4], p [90] bpm, bp [108/64], r [18] / min. on cardiac assessment: normal heart sounds, regular rate rhythm respiratory assessment: aerating well, clear to auscultation capillary refill assess: less than 2 sec peripheral pulse assess: radial pulse: bounding skin color: normal color ed course medication(s) ordered medication(s) ordered: anti-infective agents sig/jesse start time last medication dose route stop time status admin azithromycin 500 mg x1ed sta 03/11 2130 dc 03/11 po 03/11 ceftriaxone sodium 1,000 mg x1ed sta 03/11 2130 dc 03/11 sodium chloride 10 ml iv 03/11 central nervous system agents sig/jesse start time last medication dose route stop time status admin acetaminophen 1,000 mg x1ed sta 03/11 2132 dc 03/11 po 03/11 ketorolac 30 mg x1ed sta 03/11 2132 dc 03/11 tromethamine iv 03/11 electrolytic, caloric, and oscar sig/jesse start time last medication dose route stop time status admin sodium chloride 1,772.73 ml x1ed sta 03/11 2129 dc 03/11 iv 03/11 patient discharge departure vital signs/condition vital signs first documented: result date time pulse ox 94 03/11 2113 b/p 113/58 03/11 2113 b/p mean 76 03/11 2113 o2 delivery room air 03/11 2113 o2 flow rate 0 03/11 2113 temp 39.2 03/11 2113 pulse 90 03/11 2113 resp 18 03/11 2113 last documented: result date time pulse ox 98 03/11 2227 b/p 108/64 03/11 2227 b/p mean 78 03/11 2227 o2 delivery room air 03/11 2227 o2 flow rate 0 03/11 2227 temp 37.4 03/11 2227 pulse 90 03/11 2227 resp 03/11 all vital signs available at the time of this entry have been reviewed. condition stable, improved clinical impression clinical impression primary impression: fever secondary impressions: bronchitis disposition decision discharge )( discharged to home yes )( time 2299 )( date 03/11/22 discharge/care plan counseled regarding diagnosis, lab results, imaging studies, prescriptions, need for follow-up, when to return to ed prescriptions azithromycin, prednsione, albuterol prescriptions reviewed risks, benefits, alternative treatment patient instructions ed bronchitis with wheezing (adult) discharge note i have spoken with the patient and/or caregivers. i have explained the patient's condition, diagnoses and treatment plan based on the information available to me at this time. i have answered the patient's and/or caregiver's questions and addressed any concerns. the patient and/or caregivers have as good an understanding of the patient's diagnosis, condition and treatment plan as can be expected at this point. the vital signs have been stable. the patient's condition is stable and appropriate for discharge from the emergency department. the patient will pursue further outpatient evaluation with the primary care physician or other designated or consulting physician as outlined in the discharge instructions. the patient and/or caregivers are agreeable to this plan of care and follow-up instructions have been explained in detail. the patient and/or caregivers have received these instructions in written format and have expressed an understanding of the discharge instructions. the patient and/or caregivers are aware that any significant change in condition or worsening of symptoms should prompt an immediate return to this or the closest emergency department or a call to 911. electronically signed by krystin engel do on 03/11/22 at 2301 rpt #:[id number] end of report [facility] 2022-02-05 10:25:00 [facility] ([facility]) EMERGENCY PROVIDER REPORT REPORT#:[id number] REPORT STATUS: Signed DATE:02/05/22 TIME: 1025 PATIENT: AYANNA NATH UNIT #: [id number] ROOM/BED: AGE: 31 SEX: M PCP PHYS: No Primary or Family Physician SERVICE AUTHOR: Vignesh Baker Jr, MD * ALL edits or amendments must be made on the electronic/computer document * See Addendum HPI-Abd Pain M 40 and Over General Initial Greet Date/Time 02/05/22 1002 Presentation Chief Complaint Abdominal pain Sudden in Onset? Yes Free Text HPI Notes Free Text HPI Notes 31-year-old man presents complaining of severe left-sided abdominal pain that he said started off with nausea and vomiting last night. He said the pain is very crampy and it is unrelenting. He appears to be quite uncomfortable. No vomiting at this time. He still has nausea no diarrhea. No fever no cough no congestion no surgeries ever He does not take medications for any medical problems. Risk-Abd Pain M 40 and Over )( Abdominal Aortic Aneurysm Risk factors reviewed Review of Systems ROS Statements All systems rev neg except as marked. Free Text ROS Notes Free Text ROS Notes Review of Systems Constitutional Denies: Chills, Fatigue, Fever. Eyes Denies: Blurred R, Blurred L. Respiratory Denies: Cough, non-productive, Cough, productive, Shortness of breath. Cardiovascular Denies: Chest pain, Syncope. GI Denies: Abdominal pain, Constipation, Hematemesis, Vomiting. Musculoskeletal Denies: Back pain, Thoracic pain. Hematologic Denies: Bleeding, Bruising. Skin Denies: Rash. Neurologic Denies: Abnormal movement, Generalized weakness, Syncope. Psychiatric Denies: Agitation, Anxiety, Suicidal ideation. Past Medical History - Adult Stated Complaint ABDOMEN PAIN NAUSEA VOMITING DIARRHEA Allergies Coded Allergies: No Known Allergies (02/05/22) Review of Nursing Notes Rev avail, and agree Pt reports no significant: Past medical history, Past surgical history Smoking status for patients 13 years old or older: Never Smoker Physical Exam Vital Signs Vital Signs First Documented: Result Date Time Pulse Ox 98 02/05 1002 B/P 129/83 02/05 1002 B/P Mean 98 02/05 1002 O2 Delivery Room air 02/05 1002 Temp 36.1 02/05 1002 Pulse 82 02/05 1002 Resp 17 02/05 1002 Last Documented: Result Date Time Pulse Ox 97 02/05 1108 B/P 102/53 02/05 1108 B/P Mean 69 02/05 1108 O2 Delivery Room air 02/05 1108 Temp 36.9 02/05 1108 Pulse 73 02/05 1108 Resp 18 02/05 1108 Review of Vital Signs Reviewed Focused PE General/Const General/Const Awake, Alert MS Head Head Normocephalic Eyes Eyes PERRL Ears/Nose/Throat Ears/Nose/Throat Airway patent, Mucous membranes moist, Pharynx NL Resp/Chest Respiratory/Chest Breath sounds NL, Breath sounds = bilat, No respiratory distress, No rales, No rhonchi, No wheezing Cardiovascular Cardiovascular Heart rate NL, Regular rhythm, Heart sounds NL, Peripheral circulation NL Abdomen/GI Abdomen/GI Soft, Non-tender, McBurney's non-tender, No guarding, No rebound, BS normoactive, No distention, No hernia, No palpable mass, No pulsatile mass MS Back Back Inspection NL, Non-tender, No CVA tenderness Skin Skin Color NL, Warm, Dry, Turgor NL Neurologic Neurologic Oriented X3, Speech NL, No motor deficits, No sensory deficits Interpretation Diagnostics Lab Results Interpretation Results Laboratory Tests 02/05/22 1022: [Embedded Image Not Available] Laboratory Tests: 02/05 1022 Chemistry Sodium (136 - 145 mmol/L) 138 Potassium (3.5 - 5.1 mmol/L) 3.6 Chloride (98 - 107 mmol/L) 109 H Carbon Dioxide (21 - 32 mmol/L) 25 BUN (7 - 18 mg/dL) 20 H Creatinine (0.67 - 1.17 mg/dL) 1.06 Estimated GFR (MDRD) (>=60) > 60.00 Glucose (70 - 100 mg/dL) 79 Calcium (8.5 - 10.1 mg/dL) 7.8 L Total Bilirubin (0.2 - 1.0 mg/dl) 0.5 AST (15 - 37 U/L) 150 H ALT (12 - 78 U/L) 145 H Alkaline Phosphatase (50 - 136 U/L) 62 Total Protein (6.4 - 8.2 g/dl) 7.5 Albumin (3.4 - 5.0 g/dl) 4.1 Lipase (73 - 393 U/L) 72 L Hematology WBC (4.5 - 11.0 X10(3)) 8.3 RBC (4.3 - 5.9 X10(6)) 4.60 Hgb (13.5 - 18.0 g/dL) 14.3 Hct (42.0 - 52.0 %) 42.1 MCV (78 - 100 fl) 91.5 MCH (26.0 - 34.0 pg) 31.1 MCHC (30.0 - 37.0 g/dl) 34.0 RDW (11.5 - 14.5 %) 13.0 Plt Count (150 - 350 X10(3)) 206 MPV (8.7 - 11.4 fl) 8.9 Neut % (Auto) (36.0 - 66.0 %) 64.8 Lymph % (Auto) (16.0 - 50.0 %) 22.8 [place]ingo % (Auto) (0.0 - 13.0 %) 8.4 Eos % (Auto) (0.0 - 4.5 %) 3.5 Baso % (Auto) (0.0 - 1.5 %) 0.4 Immature Gran # (Auto) (0.00 - 0.03 X10(3)uL) 0.01 Absolute Neuts (auto) (1.70 - 7.70 X10(3)) 5.39 Absolute Lymphs (auto) (0.70 - 4.00 X10(3)) 1.90 Absolute Monos (auto) (0.00 - 0.89 X10(3)) 0.70 Absolute Eos (auto) (0.00 - 0.60 X10(3)) 0.29 Absolute Basos (auto) (0.00 - 0.20 X10(3)) 0.03 Absolute Nucleated RBC (0.0 - 0.1 K/mm3) 0.00 Immature Gran % (0.0 - 2.0 %) 0.1 Nucleated RBC % (0 - 0.2 %) 0.0 Recent Impressions: RADIOLOGY - XR ABD COMP W DEC/ 3+V 02/05 1050 Report Impression - Status: SIGNED Entered: 02/05/2022 1056 IMPRESSION: No acute radiographic findings of the abdomen. Location: H71 Impression By: ZacVMJensen PINEDA M.D. Re-Evaluation MDM Free Text MDM Notes Additional Text 31-year-old man presents with severe sudden onset abdominal pain in the context of nausea vomiting. I suspect that patient had a viral gastroenteritis and then abdominal pain secondary to vomiting. He is resting comfortably. He took p.o. fluids without difficulty. Transaminases were elevated without bilirubin elevation so he does not have chemical evidence of biliary tract obstruction. I think the transaminases are elevated due to hepatocellular causes he should pursue hepatitis testing from PCP )( Re-Evaluation/Progress #1 )( Re-Eval Status Unchanged ED Course Medication(s) Ordered Medication(s) Ordered: Antihistamine Drugs Sig/Jesse Start time Last Medication Dose Route Stop Time Status Admin Diphenhydramine HCl 25 MG X1ED STA 02/05 1014 DC 02/05 IV 02/05 1015 1027 Central Nervous System Agents Sig/Jesse Start time Last Medication Dose Route Stop Time Status Admin Haloperidol Lactate 2.5 MG X1ED STA 02/05 1014 DCr 02/05 IV 02/05 1015 1029 Ketorolac 15 MG X1ED STA 02/05 1014 DC 02/05 Tromethamine IV 02/05 1015 1027 Electrolytic, Caloric, And Oscar Sig/Jesse Start time Last Medication Dose Route Stop Time Status Admin Sodium Chloride 1,000 ML X1ED STA 02/05 1014 DC 02/05 IV 02/05 1113 1030 Gastrointestinal Drugs Sig/Jesse Start time Last Medication Dose Route Stop Time Status Admin Metoclopramide HCl 10 MG X1ED STA 02/05 1014 DCr 02/05 IV 02/05 1015 1027 Patient Discharge Departure Vital Signs/Condition Vital Signs First Documented: Result Date Time Pulse Ox 98 02/05 1002 B/P 129/83 02/05 1002 B/P Mean 98 02/05 1002 O2 Delivery Room air 02/05 1002 Temp 36.1 02/05 1002 Pulse 82 02/05 1002 Resp 17 02/05 1002 Last Documented: Result Date Time Pulse Ox 97 02/05 1108 B/P 102/53 02/05 1108 B/P Mean 69 02/05 1108 O2 Delivery Room air 02/05 1108 Temp 36.9 02/05 1108 Pulse 73 02/05 1108 Resp 18 02/05 1108 All vital signs available at the time of this entry have been reviewed. Clinical Impression Clinical Impression Primary Impression: LLQ abdominal pain Secondary Impressions: Hepatitis Disposition Decision Discharge )( Discharged to Home Yes )( Time 1104 )( Date 02/05/22 Discharge/Care Plan (Auto) Prescriptions Current Visit Scripts ACETAMINOPHEN (TYLENOL) 500 MG PO ASDIR ACETAMINOPHEN (TYLENOL) 500 MG PO ASDIR #24 TABS Follow label instructions for pain or fever. ONDANSETRON ODT (ZOFRAN ODT) 4 MG PO Q6H PRN PRN NAUSEA/VOMITING ONDANSETRON ODT (ZOFRAN ODT) 4 MG PO Q6H PRN PRN NAUSEA/VOMITING #15 TABS Referrals Referral: PCP Follow-Up: 1-2 Days Discharge Note I have spoken with the patient and/or caregivers. I have explained the patient's condition, diagnoses and treatment plan based on the information available to me at this time. I have answered the patient's and/or caregiver's questions and addressed any concerns. The patient and/or caregivers have as good an understanding of the patient's diagnosis, condition and treatment plan as can be expected at this point. The vital signs have been stable. The patient's condition is stable and appropriate for discharge from the emergency department. The patient will pursue further outpatient evaluation with the primary care physician or other designated or consulting physician as outlined in the discharge instructions. The patient and/or caregivers are agreeable to this plan of care and follow-up instructions have been explained in detail. The patient and/or caregivers have received these instructions in written format and have expressed an understanding of the discharge instructions. The patient and/or caregivers are aware that any significant change in condition or worsening of symptoms should prompt an immediate return to this or the closest emergency department or a call to 911. at 1318 Addendum 1: 02/05/22 1513 by Vignesh Baker Jr, MD Patient Addendum Addendum EKG read interpreted by me 05 February 2022 1015 normal sinus rhythm rate 72 motion artifact some upsloping consistent with early repolarization in this thin man in the lateral chest leads at 1513 RPT #:[id number] END OF REPORT [facility]
[2024-05-18] MEDS ORDERED: NA CHLORIDE 0.9% 1,000 ML ONE (01:33)
[2024-05-18] MEDS ORDERED: FAMOTIDINE 20 MG/2 ML VIAL IV ONE (01:33)
[2024-05-18] MEDS ORDERED: MORPHINE 4 MG/ML SYR ONE (01:33)
[2024-05-18 01:42] LABS: Absolute Eosinophils 0.1 K/uL (0-0.5); Absolute Lymphocytes (CBC) 1.2 K/uL (0.7-4.9); Absolute Neutrophil 3.9 K/uL (1.8-8.0); Basophils % 0.6 % (0-1.3); Eosinophils % 2.3 % (0-4.4); Hematocrit 41.3 % (39.6-49.0); Hemoglobin 14.2 g/dL (13.6-17.9); MCH 31.8 pg (27.0-35.0); MCHC 34.5 g/dL (32.0-36.0); MCV 92.3 fL (80-100); MPV 6.9 fL (7.6-11.3); Monocytes % 15.3 % (3.3-12.3); Neutrophils % 62.8 % (41.7-73.7); Nucleated RBC Absolute Count 0.1 (0-0); Nucleated Red Blood Cells % 0.9 % (0-0); Platelets 245 thou/uL (152-406); RBC Red Blood Cell Count 4.48 M/uL (4.33-5.43); Red Cell Distribution Width 14.4 % (12.1-15.2)
[2024-05-18 01:51] LABS: Albumin 3.9 g/dL (3.4-5.0); Albumin/Globulin Ratio 1.1 (1.1-1.8); Anion Gap 10.4 mEq/L (5.0-15.0); Bilirubin Total 1.4 mg/dL (0.2-1.0); Globulin 3.6 g/dL (2.3-3.5); Potassium 3.4 mEq/L (3.5-5.1); Protein, Total 7.5 g/dL (6.4-8.2)
--- NOTE | 2024-05-18 02:51 | RAD REPORT ---
PROCEDURE: US ABDOMEN LIMITED INDICATION: Abnormal LFTs. Abdominal pain. COMPARISON: None. TECHNIQUE: Grayscale, color and spectral Doppler ultrasound of the gallbladder was performed. FINDINGS: VISUALIZED LIVER: Echotexture: Normal. Biliary ducts: No dilatation. Cyst/masses: None. GALLBLADDER: No stones or sludge. Several linear echogenicities is likely artifactual in nature. No g allbladder wall thickening or pericholecystic fluid. Negative Banuelos's sign. COMMON DUCT: The common duct measures 2.8 mm, within normal range. There is no evidence of choledocho lithiasis. PORTAL VEIN: Antegrade hepatopedal flow. OTHER: one. IMPRESSION: Negative exam. Electronically signed by: Beba Clements MD 05/18/2024 02:41 AM CDT RP Due to temporary technical issues with the [employer] reporting system, reports are being sign ed by the in-house radiologist without review as a courtesy to ensure prompt reporting the interpreting rad iologist is fully responsible for the content of the report. Transcribed Date/Time: 05/18/2024 2:51 AM
--- NOTE | 2024-05-18 05:00 | ER ---
Nurse's Notes [facility] Name: Jagdish Luis Age: 34 yrs Sex: Male : 1990 Arrival Date: 05/18/2024 Time: 00:46 Bed 15 Private MD: Diagnosis: Enlarged prostate with lower urinary tract symptoms;Abdominal pain, unspecified;Hepatomegaly, not elsewhere classified Presentation: 05/18 00:52 Chief complaint: EMS states: SWALLOWED UNKNOWN OBJECT AND NOW HAS ABDOMINAL PAIN. kj2 Coronavirus screen: At this time, the client does not indicate any symptoms associated with coronavirus-19. Ebola Screen: No symptoms or risks identified at this time. Initial Sepsis Screen: Does the patient meet any 2 criteria? No. Patient's initial sepsis screen is negative. Does the patient have a suspected source of infection? No. Patient's initial sepsis screen is negative. Risk Assessment: Do you want to hurt yourself or someone else? Patient reports no desire to harm self or others. Onset of symptoms. 00:52 Method Of Arrival: EMS: [facility] 00:52 Acuity: SHAUN 3 kj2 Triage Assessment: 00:55 General: Appears uncomfortable, Behavior is cooperative. Pain: Complains of pain in kj2 ABDOMEN Pain currently is 10 out of 10 on a pain scale. Neuro: Level of Consciousness is awake, alert, Oriented to person, place, time, situation. Cardiovascular: Patient's skin is warm and dry. Respiratory: Airway is patent Respiratory effort is unlabored. GI: Reports lower abdominal pain, upper abdominal pain. : No signs and/or symptoms were reported regarding the genitourinary system. Historical: - Allergies: 00:50 No Known Allergies; kj2 - PMHx: 00:52 Bipolar disorder; kj2 - Immunization history:: Adult Immunizations unknown. - Infectious Disease History:: Denies. - Social history:: Smoking status: Reported history of juuling and/or vaping. Patient uses [employer]. - Family history:: not pertinent. - Hospitalizations: : No recent hospitalization is reported. Screenin:57 [facility] ED Fall Risk Assessment (Adult) History of falling in the last 3 months, kj2 including since admission No falls in past 3 months (0 pts) Confusion or Disorientation No (0 pts) Intoxicated or Sedated No (0 pts) Impaired Gait No (0 pts) Mobility Assist Device Used No (0 pt) Altered Elimination No (0 pt) Score/Fall Risk Level 0 - 2 = Low Risk Maintained a safe environment, Hourly rounding (assess needs \T\ fall precautionary measures) done. Abuse screen: Denies threats or abuse. Denies injuries from another. Nutritional screening: No deficits noted. Tuberculosis screening: No symptoms or risk factors identified. Assessment: 00:56 General: SEE TRIAGE. kj2 01:41 Reassessment: Patient and/or family updated on plan of care and expected duration. Pain kj2 level reassessed. Patient is alert, oriented x 3, equal unlabored respirations, skin warm/dry/pink. 03:03 Reassessment: Patient appears in no apparent distress at this time. Patient and/or kj2 family updated on plan of care and expected duration. Pain level reassessed. 03:11 GI: Bowel sounds present X 4 quads. Abdomen is tender to palpation X 4 quads. kj2 03:58 Reassessment: Patient appears in no apparent distress at this time. Patient and/or kj2 family updated on plan of care and expected duration. Pain level reassessed. Patient is alert, oriented x 3, equal unlabored respirations, skin warm/dry/pink. 04:45 Reassessment: Patient appears in no apparent distress at this time. Patient and/or kj2 family updated on plan of care and expected duration. Pain level reassessed. Patient is alert, oriented x 3, equal unlabored respirations, skin warm/dry/pink. Vital Signs: 00:52 BP 124 / 79; Pulse 78; Resp 20; Temp 98.2; Pulse Ox 100% on R/A; kj2 00:56 Weight 61.23 kg; Height 5 ft. 6 in. ; kj2 01:41 BP 124 / 79; Pulse 62; Resp 18; Pulse Ox 100% on R/A; kj2 03:04 BP 124 / 91; Pulse 60; Resp 16; Pulse Ox 97% ; kj2 03:58 BP 123 / 83; Pulse 58; Pulse Ox 98% on R/A; kj2 04:53 BP 102 / 88; Pulse 70; Resp 18; Temp 98; Pulse Ox 100% on R/A; kj2 00:56 Body Mass Index 21.79 (61.23 kg, 167.64 cm) kj2 ED Course: 00:47 Patient arrived in ED. rn 00:47 Oleg De La Cruz MD is Attending Physician. rn 00:48 Marilin Zendejas RN is Primary Nurse. kj2 00:55 Triage completed. kj2 00:57 Patient has correct armband on for positive identification. Bed in low position. Call kj2 light in reach. Provided Education on: CALL LIGHT. 01:00 Arm band placed on Patient placed in an exam room, on a stretcher. kj2 01:12 Inserted saline lock: 20 gauge in right forearm, using aseptic technique. Blood ty collected. Flushed with 10 mL NS. 01:12 Initial lab(s) drawn, by me, sent to lab. ty 02:25 US Abdomen Limited In Process Unspecified. EDMS 03:11 No provider procedures requiring assistance completed. kj2 03:12 CT Abd/Pelvis - IV Contrast Only In Process Unspecified. EDMS 05:19 IV discontinued, intact, bleeding controlled, No redness/swelling at site. Pressure kj2 dressing applied. Administered Medications: 01:35 Drug: NS 0.9% IV 1000 ml IV at 1 bolus Per protocol; to be given as a bolus over 60 kj2 minutes Route: IV; Rate: 1 bolus; Site: right forearm; 02:40 Follow up: IV Status: Completed infusion kj2 04:49 Follow up: IV Status: Completed infusion; IV Intake: 1000ml kj2 01:40 Drug: Famotidine IVP 20 mg IVP once; dilute with 10 mL 0.9% NaCl; give over 2 minutes kj2 Route: IVP; Site: right forearm; 04:48 Follow up: Response: No adverse reaction kj2 01:40 Drug: morphine IVP or IV 4 mg IVP once over 4 mins Route: IVP; Infused Over: 4 mins; kj2 Site: right forearm; 02:10 Follow up: Response: No adverse reaction kj2 05:07 Drug: Ciprofloxacin PO 500 mg PO once Route: PO; kj2 05:18 Follow up: Response: No adverse reaction; Medication administered at discharge. kj2 Medication: 01:44 VIS not applicable for this client. kj2 Intake: 04:49 IV: 1000ml; Total: 1000ml. kj2 Outcome: 04:59 Discharge ordered by . rn 05:18 Discharged to home ambulatory, kj2 05:18 Condition: stable 05:18 Discharge instructions given to patient, Instructed on discharge instructions, follow up and referral plans. medication usage, Demonstrated understanding of instructions, follow-up care, medications, Prescriptions given X 3, 05:19 Patient left the ED. kj2 Signatures: Dispatcher [employer] Oleg Isaac MD MD rn Bal Kwong Krystal RN RN kj2
--- NOTE | 2024-05-18 05:00 | EDPHYS ---
Physician Documentation [facility] Name: Jagdish Luis Age: 34 yrs Sex: Male : 1990 Arrival Date: 05/18/2024 Time: 00:46 Bed 15 Private MD: ED Physician Oleg De La Cruz HPI: 05/18 01:12 This 34 yrs old Male presents to ER via EMS with complaints of Abdominal Pain. rn 01:12 The patient presents with abdominal pain. Onset: The symptoms/episode began/occurred rn just prior to arrival. Associated signs and symptoms: Pertinent positives: nausea, Pertinent negatives: blood in stools, chest pain, constipation, diarrhea, dysuria, fever. Modifying factors: The symptoms are alleviated by nothing, the symptoms are aggravated by touching the area. Severity of pain: At its worst the pain was moderate in the emergency department the pain is unchanged. The patient has not experienced similar symptoms in the past. Patient reports smoked synthetic marijuana from [employer], shortly after states "had a bad trip", then thinks he may have swallowed something because his stomach hurts. Patient does not recall actually swallowing anything specific but he states he was not aware what he was doing. No fever or chills. Talent fine prior to smoking synthetic marijuana.. Historical: - Allergies: 00:50 No Known Allergies; kj2 - PMHx: 00:52 Bipolar disorder; kj2 - Immunization history:: Adult Immunizations unknown. - Infectious Disease History:: Denies. - Social history:: Smoking status: Reported history of juuling and/or vaping. Patient uses [employer]. - Family history:: not pertinent. - Hospitalizations: : No recent hospitalization is reported. ROS: 01:12 Constitutional: Negative for fever, chills, and weight loss, Cardiovascular: Negative rn for chest pain, palpitations, and edema, Respiratory: Negative for shortness of breath, cough, wheezing, and pleuritic chest pain, Abdomen/GI: Positive for abdominal pain Back: Negative for injury and pain, : Negative for injury, bleeding, discharge, and swelling, MS/Extremity: Negative for injury and deformity, Skin: Negative for injury, rash, and discoloration, Neuro: Negative for headache, weakness, numbness, tingling, and seizure, Exam: 01:12 Constitutional: This is a well developed, well nourished patient who is awake, alert, rn holding abdomen, malodorous Cardiovascular: Regular rate and rhythm. No pulse deficits. Respiratory: No increased work of breathing, no retractions or nasal flaring. Abdomen/GI: Soft, epigastric tenderness without masses or distention, no peritoneal signs Vital Signs: 00:52 BP 124 / 79; Pulse 78; Resp 20; Temp 98.2; Pulse Ox 100% on R/A; kj2 00:56 Weight 61.23 kg; Height 5 ft. 6 in. ; kj2 01:41 BP 124 / 79; Pulse 62; Resp 18; Pulse Ox 100% on R/A; kj2 03:04 BP 124 / 91; Pulse 60; Resp 16; Pulse Ox 97% ; kj2 03:58 BP 123 / 83; Pulse 58; Pulse Ox 98% on R/A; kj2 04:53 BP 102 / 88; Pulse 70; Resp 18; Temp 98; Pulse Ox 100% on R/A; kj2 00:56 Body Mass Index 21.79 (61.23 kg, 167.64 cm) kj2 MDM: 00:47 Medical Screening Exam initiated rn 04:55 Differential diagnosis: appendicitis, cholecystitis, Cholelithiasis, diverticulitis, rn gastritis, gastroesophageal reflux disease, non-specific abd pain, pancreatitis, Peptic Ulcer Disease, Perf. Duodenal Ulcer, Perf. Gastric Ulcer, Ureterolithiasis. Data reviewed: vital signs, nurses notes, lab test result(s), radiologic studies, CT scan, ultrasound, and as a result, I will discharge patient. Counseling: I had a detailed discussion with the patient and/or guardian regarding the historical points, exam findings, and any diagnostic results supporting the discharge/admit diagnosis, lab results, radiology results, the need for outpatient follow up, to return to the emergency department if symptoms worsen or persist or if there are any questions or concerns that arise at home. Special discussion: I discussed with the patient/guardian in detail that at this point there is no indication for admission to the hospital. It is understood, however, that if the symptoms persist or worsen the patient needs to return immediately for re-evaluation. Based on the history and exam findings, there is no indication for further emergent testing or inpatient evaluation. I discussed with the patient/guardian the need to see the primary care provider for further evaluation of the symptoms. I discussed with the patient/guardian the need to see the urologist for further evaluation of the symptoms. ED course: No acute findings and workup today. Imaging shows prostatomegaly as well as possible cystitis patient resting comfortably without pain, normal vital signs. Patient already on tamsulosin but ran out recently. Will refill. Will send home with antibiotics. Return precautions given and understood.. 05/18 00:48 Order name: CBC with Diff; Complete Time: 01:53 rn 05/18 00:48 Order name: CMP; Complete Time: :53 rn 05/18 00:48 Order name: Lipase; Complete Time: 01:53 rn 05/18 00:48 Order name: CT Abd/Pelvis - IV Contrast Only rn 05/18 01:54 Order name: US Abdomen Limited rn 05/18 00:48 Order name: IV Saline Lock; Complete Time: 01:30 rn 05/18 00:48 Order name: Labs collected and sent; Complete Time: 01:30 rn Administered Medications: 01:35 Drug: NS 0.9% IV 1000 ml IV at 1 bolus Per protocol; to be given as a bolus over 60 kj2 minutes Route: IV; Rate: 1 bolus; Site: right forearm; 02:40 Follow up: IV Status: Completed infusion kj2 04:49 Follow up: IV Status: Completed infusion; IV Intake: 1000ml kj2 01:40 Drug: Famotidine IVP 20 mg IVP once; dilute with 10 mL 0.9% NaCl; give over 2 minutes kj2 Route: IVP; Site: right forearm; 04:48 Follow up: Response: No adverse reaction kj2 01:40 Drug: morphine IVP or IV 4 mg IVP once over 4 mins Route: IVP; Infused Over: 4 mins; kj2 Site: right forearm; 02:10 Follow up: Response: No adverse reaction kj2 05:07 Drug: Ciprofloxacin PO 500 mg PO once Route: PO; kj2 05:18 Follow up: Response: No adverse reaction; Medication administered at discharge. kj2 Disposition Summary: 05/18/24 04:59 Discharge Ordered Notes: Location: Home rn Problem: new rn Symptoms: have improved rn Condition: Stable rn Diagnosis - Enlarged prostate with lower urinary tract symptoms rn - Abdominal pain, unspecified rn - Hepatomegaly, not elsewhere classified rn Followup: rn - With: Private Physician - When: As needed - Reason: Recheck today's complaints, Re-evaluation by your physician Discharge Instructions: - Discharge Summary Sheet rn - Abdominal Pain, Adult rn Forms: - Medication Reconciliation Form rn - Antibiotic cadmium burner - Prescription Opioid Use rn - Patient Portal Instructions rn - Leadership Thank You Letter rn Prescriptions: - tamsulosin 0.4 mg Oral capsule - take 1 capsule ORAL route every 24 hours; 60 capsule; Refills: 0, Product rn Selection Permitted - Cipro 500 mg Oral Tablet - take 1 tablet ORAL route every 12 hours for 10 days; 20 tablet; Refills: 0, rn Product Selection Permitted - Diflucan 100 mg Oral Tablet - take 2 tablets ORAL route Day 1 for 1 day - then take one tablet by oral route rn every day for 14 days.; 16 tablet; Refills: 0, Product Selection Permitted Signatures: Dispatcher [employer] EDOleg Scales MD MD rn Jordan, Krystal, RN RN kj2 Corrections: (The following items were deleted from the chart) 00:49 00:48 CBC+H.LAB.BRZ ordered. EDMS EDMS 00:49 00:48 COMPREHENSIVE METABOLIC PANEL+C.LAB.BRZ ordered. EDMS EDMS 00:49 00:48 LIPASE+C.LAB.BRZ ordered. EDMS EDMS
[2024-05-18] MEDS ORDERED: CIPROFLOXACIN HCL 500 MG TAB ONE (05:03)
--- NOTE | 2024-05-18 06:53 | RAD REPORT ---
EXAM DESCRIPTION: Abdomen Pelvis W Contrast CLINICAL HISTORY: ABD PAIN COMPARISON: None Available. TECHNIQUE: CT of the abdomen and pelvis performed following IV administration of iodinated contrast . This exam was performed according to our departmental dose-optimization program, which includes automated exposure control, adjustment of the mA and/or kV according to patient size and/or use of it erative reconstruction technique. FINDINGS: Lung Bases: The visualized lung bases are clear. Bones: No acute osseous abnormality identified. Abdomen: Liver: Hepatomegaly. Gallbladder: No calcified gallstones. Spleen, Pancreas, and Adrenal Glands: Splenomegaly. The pancreas and adrenal glands are unremarkabl e. Kidneys: No hydronephrosis or obstructing calculus. Vasculature: The aorta and IVC have normal caliber and position. The portal vein is patent. The pro ximal visceral and renal arteries are patent. Stomach: Small hiatal hernia. Other: No free intraperitoneal air. No free fluid or lymphadenopathy. Pelvis: Bladder: Mild wall thickening of the urinary bladder. Bowel: No dilated loops of large or small bowel. Appendix: Normal appendix. Pelvis: Enlarged prostate. IMPRESSION: 1. Mild wall thickening of the urinary bladder. This could be seen with cystitis. 2. Enlarged prostate. 3. Hepatosplenomegaly. 4. Small hiatal hernia. Electronically signed by: Bud Gonzalez DO 05/18/2024 04:24 AM T [id number] Due to temporary technical issues with the [employer] reporting system, reports are being mercy d by the in-house radiologist without review as a courtesy to ensure prompt reporting the interpreting radiologist is fully responsible for the content of the report. Transcribed Date/Time: 05/18/2024 6:53 AM
[2024-05-18 14:43] VITALS: BP 102/88; TEMP 98; O2SAT 100
== END 2024-05-18 05:19 | disposition home or self-care (01) ==
LOC: ER 00:46
DX: R10.9 Unspecified abdominal pain (principal); N40.1 Benign prostatic hyperplasia with lower urinary tract symptoms; R16.0 Hepatomegaly, not elsewhere classified; F17.290 Nicotine dependence, other tobacco product, uncomplicated; F12.90 Cannabis use, unspecified, uncomplicated
CPT/HCPCS: 85025; 36415; 83690; 80053; 74177; 76705; Q9967; J7030; 96361; 96374; 96375; 99284